=== PATIENT | male | born 1985 | race African-American/Black ===

== ENCOUNTER 2025-01-12 12:33 | Emergency (ER) | payer OTHER, SELFPAY ==
--- NOTE | ~2025-01-12 | XR_ITS ---
EXAM/ PROCEDURE: XR ankle LT min 3V - 01/12/2025 12:55 CDT HISTORY: 39 years old Male with injury, pt fell 2 days ago off of roof COMPARISON: None available TECHNIQUE: Four view(s) FINDINGS/ IMPRESSION: Subtle linear lucency overlying the medial malleolus may represent an acute nondisplaced fracture. Correlate with point tenderness to rule out an acute nondisplaced fracture. Diffuse soft tissue swelling around the ankle. There are no dislocations.Joint spaces are within normal limits. Reviewed, dictated and finalized at location N.
[2025-01-12 12:49] VITALS: BP 189/125; PULSE 110; RESP 16; O2SAT 100
--- NOTE | 2025-01-12 14:10 | ED_ITS ---
HPI - Extremity Injury (Lower) General Chief Complaint: Extremity Injury, Lower Stated Complaint: left ankle injury Time Seen by Provider: 01/12/25 14:08 Related Data Allergies Allergy/AdvReac Type Severity Reaction Status Date / Time No Known Allergies Allergy Unverified 09/17/15 06:44 [facility] Family History Family History (Updated 09/18/16 @ 08:59 by DOCTOR UNKNOWN) Mother Patient's mother is in good health Father Patient's father is in good health Sibling Patient's sister is in good health Patient's brother is in good health Social History Social History Smoking status: Heavy tobacco smoker Alcohol intake: current Course Vital Signs Vital signs: Vital Signs Pulse Rate 110 H 01/12/25 12:49 Respiratory Rate 16 01/12/25 12:49 Blood Pressure 189/125 H 01/12/25 12:49 Pulse Oximetry 100 01/12/25 12:49 Pulse Rate 110 H 01/12/25 12:49 Respiratory Rate 16 01/12/25 12:49 Blood Pressure 189/125 H 01/12/25 12:49 Pulse Oximetry 100 01/12/25 12:49 Discharge Plan Discharge Clinical Impression: Closed fracture of medial malleolus of left ankle Patient Disposition: Home Condition: Stable Instructions: Antibiotic Form, Ankle Fracture (ED), Splint Care (ED), P.R.I.C.E. Treatment (ED) Additional Instructions: You will need to follow-up with orthopedics for further evaluation of your ankle fracture. Call office to make appointment. Wear splint until seen by orthopedics. Use crutches for assistance with walking. Avoid weight-bearing until seen by orthopedics. Recommend elevation of leg, frequent icing to ankle, Tylenol/ibuprofen as needed for pain. [place] as needed for severe pain. Return to the ED if you experience worsening symptoms, recurrent injury, numbness, or any other symptoms of concern. Patient Language: Syriac Prescriptions: New hydrocodone-acetaminophen 5-325 mg tablet 1 tablet PO Q6H PRN (Reason: pain) Qty: 15 0RF Follow-up/Referrals: PHYSICIAN NOT ON STAFF,NONSTAFF [Primary Care Provider] Sanchez Velázquez MD [Physician, Orthopedics] Referral Note: ORTHOPEDICS Time of Disposition: 14:11
[2025-01-12] MEDS: HYDROcodone/acetaminophen (*CRX) 5-325 MG TABLET 1 TAB PO (14:42)
[2025-01-12 15:03] VITALS: BP 143/98; PULSE 88; RESP 18; TEMP 36.6; O2SAT 98
--- NOTE | 2025-01-12 19:00 | ED_ITS ---
HPI - Extremity Injury (Lower) General Chief Complaint: Extremity Injury, Lower Stated Complaint: left ankle injury Time Seen by Provider: 01/12/25 14:08 Source: patient Mode of arrival: ambulatory Limitations: no limitations History of Present Illness HPI Narrative: Patient is a 39-year-old male who presents the ED with report of left ankle pain. Patient reports he was working on a roof when he slipped and fell. He was able to catch himself with his arms, but fell onto his left ankle. Complains of pain and swelling to his left ankle. Unable to ambulate. Denies any other injuries. Denies head injury or LOC. Denies neck or back pain. Denies numbness. Related Data Allergies Allergy/AdvReac Type Severity Reaction Status Date / Time No Known Allergies Allergy Unverified 09/17/15 06:44 Review of Systems Review of Systems: All systems reviewed & are unremarkable except as noted in HPI. All systems reviewed & are unremarkable except as noted in HPI and below PMFSH Family History Family History Mother Patient's mother is in good health Father Patient's father is in good health Sibling Patient's sister is in good health Patient's brother is in good health Social History Social History Smoking status: Heavy tobacco smoker Alcohol intake: current Exam Narrative: GENERAL: Well appearing, well-nourished, non-toxic, in no acute distress. HEAD: Normocephalic, atraumatic. RESPIRATORY: Airway patent, respirations nonlabored. CARDIOVASCULAR: Regular rate and rhythm. Pedal pulses intact and easily palpable. MUSCULOSKELETAL: Moves all extremities. No gross deformities. Diffuse swelling throughout left ankle joint, diffuse tenderness throughout lateral and medial malleoli. Sensation intact. Able to wiggle toes. Capillary refill intact. SKIN: Warm, dry, normal color. NEURO: A&O X3. Speech clear. Cranial nerves II-XII grossly intact. No ataxic movements. PSYCHIATRIC: Appropriate mood and affect. Normal interaction. Course Vital Signs Vital signs: Vital Signs Pulse Rate 110 H 01/12/25 12:49 Respiratory Rate 16 01/12/25 12:49 Blood Pressure 189/125 H 01/12/25 12:49 Pulse Oximetry 100 01/12/25 12:49 Temperature 97.9 F 01/12/25 15:03 Pulse Rate 88 01/12/25 15:03 Respiratory Rate 18 01/12/25 15:03 Blood Pressure 143/98 H 01/12/25 15:03 Pulse Oximetry 98 01/12/25 15:03 MDM - Extremity Injury (Lower) MDM Narrative Medical decision making narrative: Patient?s injury is consistent with musculoskeletal etiology. No signs of neurologic or vascular compromise on physical examination. Compartments are soft without signs of compartment syndrome. XR left ankle showing likely fracture of medial malleoli. Patient is acutely tender in this region. Will treat as fracture. Placed in short leg posterior splint. Given crutches. Given pain control. Will discharge with short course of [place] for home and advised patient to follow-up with orthopedics for further evaluation. Patient denies any other areas of pain. Given return precautions. In agreement with plan. Discharged in stable condition. Medical Records Attestation: I reviewed the patient's medical records. Imaging Data Attestation: I personally reviewed and interpreted this imaging study as follows: Radiologist's impression: FINDINGS/ IMPRESSION: Subtle linear lucency overlying the medial malleolus may represent an acute nondisplaced fracture. Correlate with point tenderness to rule out an acute nondisplaced fracture. Diffuse soft tissue swelling around the ankle. There are no dislocations.Joint spaces are within normal limits. Discharge Plan Discharge Clinical Impression: Closed fracture of medial malleolus of left ankle Qualifiers: Encounter type: initial encounter Fracture alignment: nondisplaced Qualified Code(s): S82.55XA - Nondisplaced fracture of medial malleolus of left tibia, initial encounter for closed fracture Patient Disposition: Home Condition: Stable Instructions: Antibiotic Form, Ankle Fracture (ED), Splint Care (ED), P.R.I.C.E. Treatment (ED) Additional Instructions: You will need to follow-up with orthopedics for further evaluation of your ankle fracture. Call office to make appointment. Wear splint until seen by orthopedics. Use crutches for assistance with walking. Avoid weight-bearing until seen by orthopedics. Recommend elevation of leg, frequent icing to ankle, Tylenol/ibuprofen as needed for pain. [place] as needed for severe pain. Return to the ED if you experience worsening symptoms, recurrent injury, numbness, or any other symptoms of concern. Patient Language: Estonian Prescriptions: New hydrocodone-acetaminophen 5-325 mg tablet 1 tablet PO Q6H PRN (Reason: pain) Qty: 15 0RF Follow-up/Referrals: PHYSICIAN NOT ON STAFF,NONSTAFF [Primary Care Provider] Sanchez Velázquez MD [Physician, Orthopedics] Referral Note: ORTHOPEDICS Time of Disposition: 14:11
== END 2025-01-12 15:05 | disposition home or self-care (01) ==
LOC: ANHED 14:20
PROVIDERS: Emergency Provider Physician Assistant
DX: S82.55XA Nondisplaced fracture of medial malleolus of left tibia, initial encounter for closed fracture (principal); F17.200 Nicotine dependence, unspecified, uncomplicated; W01.0XXA Fall on same level from slipping, tripping and stumbling without subsequent striking against object, initial encounter
CPT/HCPCS: 29515; 73610; 99284; A9270